=== PATIENT | male | born 1980 | race Caucasian/White ===

== ENCOUNTER 2017-10-03 15:19 | Emergency (ER) | payer OTHER ==
[~2017-10-03] VITALS: Ht 172.7 cm; Wt 61.2 kg
[~2017-10-03 15:19] MED LIST: BACTRIM DS TAB1 EACH PO; CIPRO250 M1 PO; CLONAZEPAM 0.50.5 M1 PO; CLONIDINE HCL0.1 MG PO; CYMBALTA20 MG PO; PYRIDIUM200 MG PO
[2017-10-03] MEDS ORDERED: KEPPRA 500 MG500 M1 PO (15:31)
[2017-10-03] MEDS ORDERED: CATAPRES0.2 MG PO (15:34)
[2017-10-03] MEDS ORDERED: ESCITALOPRAM OX10 MG PO (15:35)
[2017-10-03] MEDS ORDERED: BUPRENORPHINE HC8 MG SUBLING (15:35)
[2017-10-03] MEDS ORDERED: REMERON15 MG PO (15:36)
[2017-10-03] MEDS ORDERED: NORCO 5-325 TA1 EACH PO (16:08)
== END 2017-10-03 17:00 | disposition home or self-care (01) ==
LOC: ER 15:19
DX: S02.2XXA Fracture of nasal bones, initial encounter for closed fracture (principal); G40.909 Epilepsy, unspecified, not intractable, without status epilepticus; F17.210 Nicotine dependence, cigarettes, uncomplicated; Z88.1 Allergy status to other antibiotic agents; Z87.442 Personal history of urinary calculi; X58.XXXA Exposure to other specified factors, initial encounter; Y93.89 Activity, other specified; Y92.481 Parking lot as the place of occurrence of the external cause; Y99.8 Other external cause status

== ENCOUNTER 2019-09-15 00:31 | Emergency (ER) | payer OTHER ==
[~2019-09-15] VITALS: Ht 172.7 cm; Wt 61.2 kg
[~2019-09-15 00:31] MED LIST changes: +BUPRENORPHINE HC8 MG SUBLING; +CATAPRES0.2 MG PO; +ESCITALOPRAM OX10 MG PO; +KEPPRA 500 MG500 M1 PO; +NORCO 5-325 TA1 EACH PO; +REMERON15 MG PO
[2019-09-15] MEDS ORDERED: BRINTELLIX20 MG PO (00:44)
[2019-09-15] MEDS ORDERED: ADDERALL 20 MG20 M1 PO (00:46)
[2019-09-15] MEDS ORDERED: MELOXICAM15 MG PO (00:46)
[2019-09-15] MEDS ORDERED: PRED FORTE 1% EY5 M1 INTRAOCULR (00:47)
[2019-09-15] MEDS ORDERED: TOBRADEX ST EYE5 ML INTRAOCULR (00:48)
[2019-09-15 01:51] VITALS: BP 101/56
== END 2019-09-15 01:51 | disposition home or self-care (01) ==
LOC: ER 00:31
DX: Z53.21 Procedure and treatment not carried out due to patient leaving prior to being seen by health care provider (principal)